=== PATIENT | female | born 1970 | race Caucasian/White ===

== ENCOUNTER → 2023-12-20 07:50 | Outpatient (BNVA) | payer OTHER, SELFPAY | PROVIDERS: Family Provider Family Medicine; Visit Provider Podiatrist Foot & Ankle Surgery | DX: M79.671 Pain in right foot (principal); M79.672 Pain in left foot; Z98.1 Arthrodesis status; M25.872 Other specified joint disorders, left ankle and foot | CPT/HCPCS: 73630 ==

== ENCOUNTER 2024-05-13 09:20 | Outpatient (CLI) | payer OTHER, SELFPAY | END 2024-05-13 09:21 | disposition home or self-care (01) | LOC: SPT 09:20 | PROVIDERS: Family Provider Family Medicine; PCP Student in an Organized Health Care Education/Training Program; Visit Provider Podiatrist Foot & Ankle Surgery | DX: Z46.89 Encounter for fitting and adjustment of other specified devices (principal); M79.671 Pain in right foot; M79.672 Pain in left foot; Z98.1 Arthrodesis status; M25.879 Other specified joint disorders, unspecified ankle and foot; M21.619 Bunion of unspecified foot | CPT/HCPCS: L3030 ==

== ENCOUNTER 2024-08-30 08:46 | Day surgery (SDC) | payer BC, SELFPAY ==
[2024-08-30] VITALS (10 sets, daily range): BP systolic 90–141; BP diastolic 59–85; PULSE 57–63; RESP 16–18; TEMP 36.1–36.2; O2SAT 93–98; BMI 30.9
[2024-08-30] MEDS: CELEcoxib 200 mg Capsule 400 MG PO (09:16)
[2024-08-30] MEDS: gabapentin 300 mg Capsule PO (09:16)
[2024-08-30] MEDS: sodium chloride 0.9% 1,000 ML 100 ML IV (09:17)
--- NOTE | 2024-08-30 09:34 | P.ANESASSM_ITS ---
Pre-Anesthetic Assessment Height/Weight: Height 1.63 m Weight 81.647 kg Temp Pulse Resp BP Pulse Ox O2 Del Method 97.2 F L 63 16 141/85 95 Room Air 08/30/24 09:00 08/30/24 09:00 08/30/24 09:00 08/30/24 09:00 08/30/24 09:00 08/30/24 09:00 Preop Diagnosis: Malunion right foot Operation Date: 08/30/24 10:40 Proposed Procedures p Metatarsophalangeal Joint Fusion(Right) - Emeka Cartagena DPM s Bone Autograft Calcaneal Autograft(Right) - Emeka Cartagena DPM Familial anesthetic complications: none Was Beta Carmelo taken within 24 hours: N/A Was Clonidine taken within 24 hours: N/A Last intake: Intake Last Liquid Date 08/29/24 Last Liquid Time 23:00 Last Solid Date 08/29/24 Last Solid Time 17:00 Social No alcohol and No tobacco Exam alert, oriented x 3, clear to auscultation bilaterally and regular rate & rhythm Airway Submandibular: within normal limits Cervical ROM: within normal limits Mallampati: Class II Dentition: partials (upper) History/ROS No significant history except as noted Anesthetic Plan ASA status: 1 Anesthesia: MAC Medications/Allergies Home Medications ?Medication ?Instructions ?Recorded ?Confirmed ?Last Taken ?Type sole supports #1 ea 04/03/24 08/05/24 Unkn own Rx Allergies Allergy/AdvReac Type Severity Reaction Status Date / Time No Known Allergies Allergy Verified 08/30/24 08:58 Current Medications Generic Name Dose Route Start Last Admin Trade Name Maliha PRN Reason Stop Dose Admin Sodium Chloride 1,000 mls @ 100 mls/hr 08/30/24 09:15 08/30/24 09:17 Sodium Chloride 0.9% IV 08/31/24 09:14 100 mls/hr .Q10H GOLDEN Administration PFSH Anesthesia Social History Smoking and tobacco/nicotine status: current some day tobacco/nicotine user Alcohol intake: current Alcohol intake frequency: 0-2 Drinks per Day Substance/Drug Use: never Data Anesthesia Cardiac Studies: No Data to Display
[2024-08-30] MEDS: HYDROmorphone 1 mg/mL INJ 1ml 0.5 MG IVP (09:37)
--- NOTE | 2024-08-30 09:45 | W.PM.OPSUD ---
Surgery/Procedure H&P Update DATE OF PROCEDURE: August 30, 2024 DATE H&P PERFORMED: 08/05/24 H&P UPDATE INFORMATION: I have reviewed H&P completed within last 30 days, I have examined patient prior to procedure, No changes to prior documentation and Risks and benefits of the procedure reviewed PREOP DIAGNOSIS: Malunion right foot PLANNED PROCEDURE: Operation Date: 08/30/24 10:40 Proposed Procedures p Metatarsophalangeal Joint Fusion(Right) - Emeka Cartagena DPM s Bone Autograft Calcaneal Autograft(Right) - Emeka Cartagena DPM
[2024-08-30] MEDS: ceFAZolin 2,000 mg SDV 2000 MG IVP (10:06)
[2024-08-30] MEDS: tranexamic acid 1,000 mg/10mL SDV 1000 MG IV (10:15)
[2024-08-30] MEDS: BUPivacaine liposome 13.3 mg/mL SDV 20 mL 266 MG INJECTION (10:35)
[2024-08-30] MEDS: BUPivacaine 0.5% INJ 10 mL 20 ML INJECTION (10:35)
--- NOTE | 2024-08-30 11:36 | W.PM.BPON ---
Date of Procedure: 07/28/23 Surgeon: Emeka Cartagena DPM Maintenance Technician 3Rd Shift(s): Sofie Hansen Procedure(s) performed: Right first metatarsophalangeal joint fusion Findings of the procedure(s): Malunion right first metatarsal phalangeal joint Estimated blood loss: 5 mL Specimen(s) removed: No specimens Post-operative diagnosis: Right hallux valgus and malunion of the right first metatarsal phalangeal joint.
--- NOTE | 2024-08-30 11:37 | PM.OP ---
Operative Report Date of procedure: August 30, 2024 Pre-op diagnosis: Malunion right foot M84.07 Right foot pain M79.671 Right bunion M21.611 Sesamoiditis of foot M25.879 Post-op diagnosis: Malunion right foot M84.07 Right foot pain M79.671 Right bunion M21.611 Sesamoiditis of foot M25.879 Procedure done: 1) Right first metatarsal phalangeal joint fusion. CPT code 80773 Implants: [place] first MTP plate with 2.7 mm and 3.5 millimeter screws, 3-0 Vicryl, 4-0 Vicryl, 4-0 nylon. Specimens removed/disposition: None Pathology: None Surgeon: Emeka Cartagena DPM Medical Facilities Section Director: Amber Estimated blood loss: 5 55 IV fluids: see intraoperative documentation Urine output: None Complications: None Brief History: 54-year-old female failed conservative treatments as outlined in HPI has had a Braden Christina bunionectomy performed at another facility, had hardware failure and that surgeon performed a right first metatarsal phalangeal joint fusion she is unable to purchase the ground with the right great toe it is dorsiflexion is attributed to her sesamoid pain she has failed conservative treatment consisting of oral anti-inflammatories, rest immobilization, orthotics [id number] prefab orthotics as well as custom molded functional orthotics, activity modification she continues to have pain daily like to discuss revision to allow the great toe to purchase the ground. This would require a revisional arthrodesis and likely calcaneal autograft. I reviewed at length with the patient, the risks, potential complications, benefits, alternatives, expectations, and typical outcomes associated with the surgery. The risks and potential complications were explained in detail, including but not limited to infection, wound dehiscence or soft tissue complications, bleeding and hematoma, chronic edema, neuritis or nerve damage producing numbness or chronic pain, CRPS, failure to relieve pain or worsening pain, thick / painful / unsightly scar, limited motion / stiffness, malposition, delayed union, malunion, or nonunion, fracture, reaction to implants, anesthetic complications, venous thromboembolism, and deformity recurrence. I discussed the notion of no regrets with the patient as it pertains to complications and outcomes. The patient seemed to understand the nature of the proposed care and required convalescence. They asked appropriate questions, answered to their satisfaction. They are aware no guarantees can be made as to a satisfactory outcome and they understand there may be other possible unforeseen complications or outcomes not listed here that will be treated accordingly if they arise. There were no written or implied guarantees given to the patient. They gave informed consent to proceed. Procedure: Under mild sedation the patient was brought to the operating room and remained on the gurney in supine position. A timeout was performed. Anesthesia was then administered by the anesthesia service. Local anesthesia was injected by myself consisting of 20 cc of 0.5% Marcaine plain in a right Deluna block fashion with an additional 20 cc of Exparel infiltrated proximal to the operative site circumferentially in a grid like fashion subcutaneously per manufacture recommendation and technique. Well-padded pneumatic tourniquet was applied to the right ankle. The right lower extremity was scrubbed, prepped and draped utilizing normal aseptic technique. Right foot was exanguinated with an Esmarch bandage and tourniquet inflated to 250 mmHg. Attention was directed to the right first metatarsal phalangeal joint noted to be in a malunion position dorsiflexed approximately 1 cm from purchasing the ground when loading and simulating weightbearing status. Directly over previous incision and new linear incision was performed through skin with a #15 blade with dissection carried down through subcutaneous tissue to layer of periosteum. Periosteum incision was made in a transverse osteotomies performed at the level of the first metatarsal phalangeal joint fusion site, cone and cup reamers were then utilized at the arthrodesis site manually followed by saline flush and subchondral drilling. The right great toe was positioned in slight valgus, neutral in the frontal plane position in slight dorsiflexion this was positioned with the great toe making contact with a flat weightbearing surface when loading the forefoot that is not aggressive or elevated. Dorsal locking plate was then fixated at the arthrodesis site with 2.7 millimeter screws distally and 3.5 millimeter screws proximally with excellent bony apposition and compression noted. Intraoperative C-arm confirmed excellent placement of hardware and alignment of the first metatarsophalangeal arthrodesis site. The incision site was irrigated with saline solution and closed in a layered fashion. Periosteum reapproximated with 3-0 Vicryl, subcutaneous tissue reapproximated with 4-0 Vicryl and skin reapproximated with 4-0 nylon. The incision was dressed with Xeroform, 4 x 4 gauze, Kerlix, Zeferino wrap and a cam boot was applied to the right lower extremity. Tourniquet was deflated and a prompt hyperemic response is noted to the distal digits of the right foot. Patient tolerated the procedure and anesthesia well and was transferred to the PACU with vital signs stable and vascular status intact. Following a period of postoperative monitoring should be discharged home without home care instructions and scheduled follow-up.
--- NOTE | 2024-08-30 11:40 | XR_ITS ---
WS: [id number] Right foot, 3 views, 08/30/2024 Clinical Data: post op Comparison: Bilateral feet, 12/20/2023 Findings: There is fusion of the right first MTP joint with plate and screws. The remainder of the foot shows no change. XR/XR foot RT min 3V* [id number] Impression: Fusion of the right first MTP joint.
--- NOTE | 2024-08-30 11:47 | ANE.PACU2 ---
Inpatient post-anesthesia follow up: Airway intact: Yes Vital signs: Temperature 97.0 F Pulse Rate 59 Respiratory Rate 16 Blood Pressure 97/64 Pulse Oximetry 95 Oxygen Delivery Me thod Room Air Oxygen Flow Rate Fraction of Inspir ed Oxygen Hydration adequate: Yes Nausea and vomiting: No Pain level: 2 Mental status: Baseline
== END 2024-08-30 12:20 | disposition home or self-care (01) ==
PROVIDERS: PCP Student in an Organized Health Care Education/Training Program; Visit Provider Podiatrist Foot & Ankle Surgery
PROC: (CPT 28750; principal; 2024-08-30 10:30)
PROC: (CPT 28750; 2024-08-30 10:30)
DX: M96.0 Pseudarthrosis after fusion or arthrodesis (principal); M21.611 Bunion of right foot; M20.11 Hallux valgus (acquired), right foot; M25.871 Other specified joint disorders, right ankle and foot
CPT/HCPCS: 28750; 73630; 76000; C1713; C1734; J0666; J0690; J1171; J2250; J2704; J3010; J3490; J7030; J9999

== ENCOUNTER → 2024-09-12 12:46 | Outpatient (BNVA) | payer BC, SELFPAY | PROVIDERS: PCP Student in an Organized Health Care Education/Training Program; Visit Provider Podiatrist Foot & Ankle Surgery | DX: Z98.890 Other specified postprocedural states (principal) | CPT/HCPCS: 73630 ==

== ENCOUNTER → 2024-10-02 09:04 | Outpatient (BNVA) | payer BC, SELFPAY | PROVIDERS: PCP Student in an Organized Health Care Education/Training Program; Visit Provider Podiatrist Foot & Ankle Surgery | DX: Z98.890 Other specified postprocedural states (principal) | CPT/HCPCS: 73630 ==

== ENCOUNTER → 2024-11-07 13:19 | Outpatient (BNVA) | payer BC, SELFPAY | PROVIDERS: PCP Student in an Organized Health Care Education/Training Program; Visit Provider Podiatrist Foot & Ankle Surgery | DX: Z98.890 Other specified postprocedural states (principal) | CPT/HCPCS: 73630 ==

== ENCOUNTER → 2024-11-21 13:12 | Outpatient (BNVA) | payer BC, SELFPAY | PROVIDERS: PCP Student in an Organized Health Care Education/Training Program; Visit Provider Podiatrist Foot & Ankle Surgery | DX: Z98.890 Other specified postprocedural states (principal) | CPT/HCPCS: 73630 ==

== ENCOUNTER → 2025-01-02 13:04 | Outpatient (BNVA) | payer BC, SELFPAY | PROVIDERS: PCP Student in an Organized Health Care Education/Training Program; Visit Provider Podiatrist Foot & Ankle Surgery | DX: Z98.890 Other specified postprocedural states (principal) | CPT/HCPCS: 73630 ==